=== PATIENT | female | born 1970 | race African-American/Black ===

== ENCOUNTER 2017-05-21 01:53 | Emergency (ER) | payer MEDICAID, OTHER ==
[~2017-05-21] VITALS: Ht 167.6 cm; Wt 63.5 kg
[~2017-05-21 01:53] MED LIST: CYCLOBENZAPRINE10 MG ORAL; IBUPROFEN600 MG ORAL; VICODIN 5-5001 EACH PO
[2017-05-21 02:12] VITALS: BP 162/96
--- NOTE | 2017-05-21 02:43 | Emergency Room Report ---
History of Present Illness General Chief Complaint: Multiple Trauma/Fall Source: Patient Present Illness HPI Patient was that she was walking in the park yesterday she tripped and fell injuring her left knee patient also reports she cut her right hand Patient complains of diffuse body ache as well including lower neck pain after the fall Denies any chest pain shortness of breath denies any vomiting Patient reports that she has been able to ambulate however with some increased pain in the left knee Allergies: Coded Allergies: No Known Allergies (Unverified , 05/17/12) Patient History Past Medical History: see triage record Pertinent Family History: none Reviewed Nursing Documentation: PMH: Agreed, PSxH: Agreed Nursing Documentation-PMH Past Medical History: No Stated History Review of Systems All Other Systems: negative except mentioned in HPI Physical Exam Vital Signs Date Time Temp Pulse Resp B/P (MAP) Pulse Ox O2 Delivery O2 Flow Rate FiO2 05/21/17 02:01 98.1 66 16 162/96 99 Room Air Sp02 EP Interpretation: reviewed, normal General Appearance: well appearing, no apparent distress Head: normocephalic, atraumatic Eyes: bilateral eye PERRL, bilateral eye EOMI ENT: normal pharynx, no angioedema Neck: supple Respiratory: lungs clear, normal breath sounds Cardiovascular #1: regular rate, rhythm Gastrointestinal: normal bowel sounds, non tender Musculoskeletal: other - Abrasion lower left patella, patient has open wound right palm of the hand, secondary intention healing process mild erythema Neurologic: alert, oriented x3 Skin: other - as above Lymphatic: no adenopathy Medical Decision Making Diagnostic Impression: Primary Impression: Infected wound Additional Impression: Contusion ER Course Patient's x-ray imaging is negative Given the history and the presentation given the hand examination patient was provided oral antibiotics and requires close outpatient followup Other X-Ray Diagnostic Results Other X-Ray Diagnostic Results : X-Ray ordered: left knee # of Views/Limited Vs Complete: 3 View Indication: Pain EP Interpretation: Yes Interpretation: no dislocation, no soft tissue swelling, no fractures Impression: No acute disease Electronically Signed by: Sola Adams DO Last Vital Signs Date Time Temp Pulse Resp B/P (MAP) Pulse Ox O2 Delivery O2 Flow Rate FiO2 05/21/17 02:12 98.0 82 20 162/96 99 Room Air Status: improved Disposition: HOME, SELF-CARE Condition: Improved Scripts Methocarbamol* (ROBAXIN-750*) 750 Mg Tablet 750 MG PO TID, #21 TAB 0 Refills Prov: SOLA ADAMS D.O. 05/21/17 Cephalexin* (KEFLEX*) 500 Mg Capsule 500 MG ORAL Q6H, #28 CAP 0 Refills Prov: SOLA ADAMS D.O. 05/21/17 Additional Instructions: Patient is provided with the discharge instructions notified to follow up with primary doctor in the next 2-3 days otherwise return to the er with any worsening symptoms. Please note that this report is being documented using [employer] technology. This can lead to erroneous entry secondary to incorrect interpretation by the dictating instrument. SOLA ADAMS D.O. May 21, 2017 02:42
[2017-05-21] MEDS ORDERED: Cephalexin 500mg cap ORAL ONE (02:45)
[2017-05-21] MEDS ORDERED: KEFLEX500 MG ORAL (03:18)
[2017-05-21] MEDS ORDERED: ROBAXIN-750750 MG PO (03:26)
[2017-05-21 03:28] VITALS: BP 121/68
--- NOTE | 2017-05-21 12:36 | Diagnostic Imaging Report ---
Indication: Pain 3 views of the left knee were obtained. Findings: No acute fracture, malalignment, or joint effusion are identified. Joint space is relatively well-maintained. Impression: Negative for acute injury
== END 2017-05-21 03:28 | disposition home or self-care (01) ==
LOC: EMR 02:31
DX: S61.401A Unspecified open wound of right hand, initial encounter (principal); L08.9 Local infection of the skin and subcutaneous tissue, unspecified; S80.212A Abrasion, left knee, initial encounter; W45.8XXA Other foreign body or object entering through skin, initial encounter; Y92.89 Other specified places as the place of occurrence of the external cause
CPT/HCPCS: 99284